=== PATIENT | female | born 1960 | race Caucasian/White ===

== ENCOUNTER 2016-07-06 05:08 | Day surgery (SDC) | payer MEDICARE, OTHER ==
[2016-07-02 12:03] LABS: HEMATOCRIT 38.1 % (36.0-48.0); HEMOGLOBIN 12.6 g/dL (12.0-16.0)
[2016-07-02 13:36] LABS: BUN (BLOOD UREA NITROGEN) 20 MG/DL (6-23); CHLORIDE, SERUM 105 MMOL/L (96-112); CO2 (CARBON DIOXIDE) 27 MMOL/L (24-34); CREATININE 1.44 MG/DL (0.55-1.02); GFR AFRICAN AMERICAN 47 ML/MIN (>=60); GFR NON AFRICAN AMERICAN 40 ML/MIN (>=60); GLUCOSE, SERUM 72 MG/DL (60-99); POTASSIUM, SERUM 3.9 MMOL/L (3.5-5.3); SODIUM, SERUM 144 MMOL/L (135-148)
--- NOTE | ~2016-07-06 | OP ---
Record Of Operation [facility] [address] [place]. 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 OPERATIVE PROCEDURES PERFORMED: 1. Microscopic direct laryngoscopy. 2. Rigid esophagoscopy with serial dilation of the stricture. INDICATIONS AND SIGNIFICANT HISTORY: The patient is a 56-year-old female, who approximately 30 years ago underwent a partial laryngectomy after multiple treatments for an invasive thyroid carcinoma. She subsequently has been doing well. 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 She was doing all right with speech at this time, but was noting increased problems with swallowing. OPERATIVE PROCEDURE AND FINDINGS: After informed consent was obtained, the patient was brought to the operating room, placed on the operating table in supine position, at which point general endotracheal anesthesia was provided by the Anesthesia Service through her widely patent and mature tracheostoma. Next, through guarded alveolar ridge, a Dedo laryngoscope was inserted into the oral cavity and advanced over the base of the tongue. The epiglottis appeared to be largely absent; however, hyoid bone remained present. 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 The speech fistula was manipulated with a 24-Korean olive tipped dilator. Next, the attention was turned toward rigid esophagoscopy. A rigid esophagoscope was advanced into the oral cavity and into the postcricoid area, and then down into the esophagus, it was only able to advance approximately 26 cm before stricture, but no lesions were noted in this area. Next, a serial dilation was performed with a blue bougie dilators. She was taken from approximately 26-Korean up to 48-Korean with serial dilation over several minutes. She was then turned back toward Anesthesia, aroused from anesthesia, and taken to the Postanesthesia Care Unit in satisfactory condition. COMPLICATIONS: None. ESTIMATED BLOOD LOSS: None. IV FLUIDS: Per Anesthesia. DLA/MODL Rey Linn M.D. Record Of Operation [address] [address] NAME: CÉSAR HIRSCH : 58 STATUS : [facility] PAT#: [id number] AGE: 56 ADM/REG DATE : 07/06/16 MR#: [id number] REPORT SERV DATE: 07/08/16 DICTATED BY: REY LINN DATE: 07/08/16 REPORT STATUS : Draft TRANSCRIBED BY: NORM DATE: 07/08/16 / [id number] CC: Rey Linn M.D.
[~2016-07-06 05:08] MED LIST: CALCITRIOL0.5 MCG OR; CAT1 PO; CAT2 PO; CAT3 PO; DURICEF PO; FLEX PO; I40 PO; LEVAQUIN750 MG PO; LEVOTHYROXIN150 MCG PO; LEVOTHYROXIN200 MCG PO; LEVOTHYROXIN25 MCG PO; LEXAPRO10 PO; LOP100 PO; LORTAB10 PO; MEDROLPAK4 PO; NEBULIZER SOLUTION INH; NORCO1 TAB PO; NORV10 PO; PERCOCET1 TA4 PO; PREM625 PO; ROCALTROL 0.0.25 MCG OR; ROCALTROL 0.0.25 MCG PO; ROCALTROL0.25 MCG PO; ROCALTROL0.5 MCG OR; SYNTHROID175 MCG PO; SYNTHROID200 MCG PO; V2 PO; ZANTAC150 MG PO; ZANTAC300 MG PO
[2016-07-06 06:37] LABS: BASOPHILS 0.3 %; BASOPHILS ABSOLUTE 0.03 10/3/uL (0.0-0.16); EOSINOPHILS 1.7 %; EOSINOPHILS ABSOLUTE 0.19 10/3/uL (0.0-0.53); HEMATOCRIT 38.4 % (36.0-48.0); HEMOGLOBIN 12.7 g/dL (12.0-16.0); IMMATURE GRANULOCYTES 0.4 %; IMMATURE GRANULOCYTES ABSOLUTE 0.04 10/3/uL (0.0-0.11); LYMPHOCYTES ABSOLUTE 2.44 10/3/uL (0.67-4.30); MANUAL DIFF NO %; MEAN CORPUS HGB CONC 33.1 g/dL (32.0-36.0); MEAN CORPUSCULAR VOLUME 90.6 fL (80-100); MEAN PLATELET VOLUME 9.2 fL (9.2-13.0); MONOCYTES 8.3 %; MONOCYTES ABSOLUTE 0.92 10/3/uL (0.21-1.20); NEUTROPHILS 67.3 %; NEUTROPHILS ABSOLUTE 7.45 10/3/uL (2.02-8.40); PLATELET COUNT 343 10/3/uL (150-400); RBC DISTRIBUTION WIDTH 13.9 % (12.0-16.0); RED CELL COUNT 4.24 10/6/uL (4.0-5.6); WHITE BLOOD CELLS 11.1 10/3/uL (4.5-10.5)
[2016-07-06 06:48] LABS: INTERNATIONAL NORMAL RATI 1.1 UNITS (-); PARTIAL THROMBO TIME 34.3 SEC (22.5-37.2)
== END 2016-07-06 14:45 | disposition home or self-care (01) ==
LOC: SDC 05:08
PROVIDERS: Otolaryngology
PROC: 0CJS8ZZ Inspection of Larynx, Via Natural or Artificial Opening Endoscopic (ICD-10-PCS; principal; 2016-07-06 06:45)
PROC: 0D758ZZ Dilation of Esophagus, Via Natural or Artificial Opening Endoscopic (ICD-10-PCS; 2016-07-06 06:45)
DX: K22.2 Esophageal obstruction (principal); J39.2 Other diseases of pharynx; I10 Essential (primary) hypertension; J44.9 Chronic obstructive pulmonary disease, unspecified; J45.909 Unspecified asthma, uncomplicated; E89.0 Postprocedural hypothyroidism; Z85.850 Personal history of malignant neoplasm of thyroid; Z93.3 Colostomy status; Z93.0 Tracheostomy status; Z98.890 Other specified postprocedural states; Z88.5 Allergy status to narcotic agent; Z88.8 Allergy status to other drugs, medicaments and biological substances; Z88.2 Allergy status to sulfonamides
CPT/HCPCS: 80048; 85014; 85018; 85025; 85610; 85730; 93005; A9270-GY; J1200; J2250; J2270